=== PATIENT | female | born 1960 | race Caucasian/White ===

== ENCOUNTER 2018-01-08 10:31 | Emergency (ER) | payer OTHER ==
[~2018-01-08] VITALS: Ht 165.1 cm; Wt 112.0 kg
[~2018-01-08 10:31] MED LIST: AMOXIL 875 MG875 MG PO; BACTRIM DS 8001 TAB PO
[2018-01-08 10:36] VITALS: BP 121/79
--- NOTE | 2018-01-08 12:21 | ED SKIN/ALLERGY COMPLAINT ---
History of Present Illness General Chief Complaint: General Adult Stated Complaint: ?ALLERGIC REACTION, SWELLING OF FACE/TONGUE Source: patient Exam Limitations: no limitations Vital Signs & Intake/Output Vital Signs & Intake/Output Vital Signs Date Time Temp Pulse Resp B/P B/P Pulse O2 O2 Flow FiO2 Mean Ox Delivery Rate 01/08 1036 98.7 88 18 121/79 98 Room Air Allergies Coded Allergies: codeine (Intermediate, VOMITUS 01/08/18) prednisone (Intermediate, CONFUSION 01/08/18) Reconcile Medications Amoxicillin (Amoxil 875 MG Tablets) 875 MG TAB 1 TAB PO BID CELLULITIS Dexamethasone 1 MG TABLET 1 TAB PO BID allergic reaction Sulfamethoxazole/Trimethopri (Bactrim Ds 800 MG-160 MG) 1 TAB TAB 1 TAB PO BID CELLULITIS Triage Note: 57 YO FEMALE TO [facility] FOR EVAL OF ALLERIGIC REACTION TO ?PROTEIN SHAKE. NOTED WITH SWELLING AROUND EYES AND SOME SWLLING TO TOUNGE. NO RESP S/S. PT ABLE TO SPEAK FELL, CLEAR SENTANCES. REPORTS NOSE FEELS CLOGGED AND ITCHY ALL OVER. Triage Nurses Notes Reviewed? yes Onset: Gradual Duration: hour(s): Timing: single episode today Severity: moderate Location: generalized HPI: 57yo female presents to ED complaining of allergic reaction to protein shake she drank around 10AM today. Patient states she began feeling gradual increasing itchiness, rash to extremities, swelling around her eyes and tongue swelling. Patient has no history of allergic reactions in the past however does believe she may have a soy allergy. Patient has seen an chief telephone operator in the past. No history of anaphylaxis. NO use of MARIJA/ARBs. Patient reports mild dyspnea at this time. (Jazmin GABRIEL,Velma Rogers) Past History Travel History Traveled to [place] past 21 day No Medical History Any Pertinent Medical History? see below for history Neurological: NONE EENT: NONE Cardiovascular: hyperlipidemia Respiratory: NONE Gastrointestinal: NONE Hepatic: NONE Renal: NONE Musculoskeletal: NONE Psychiatric: anxiety, depression Endocrine: diabetes Blood Disorders: NONE Cancer(s): NONE FOURDRINIER TENDER/Reproductive: NONE Influenza Vaccine: 02/23/13 Surgical History Surgical History: non-contributory Psychosocial History What is your primary language Sinhala Tobacco Use: Never used Family History Hx Contributory? No (Velma Carvajal) Review of Systems Review of Systems Constitutional: Reports: no symptoms. EENTM: Reports: see HPI. Respiratory: Reports: see HPI. Cardiovascular: Reports: no symptoms. GI: Reports: no symptoms. Genitourinary: Reports: no symptoms. Musculoskeletal: Reports: no symptoms. Skin: Reports: see HPI. Neurological/Psychological: Reports: no symptoms. Hematologic/Endocrine: Reports: no symptoms. Immunologic/Allergic: Reports: see HPI. All Other Systems: Reviewed and Negative (Velma Carvajal) Physical Exam Physical Exam General Appearance: well developed/nourished, no apparent distress, alert, awake Head: atraumatic, normal appearance Eyes: Bilateral: other (chemosis). Ears, Nose, Throat: normal pharynx, hearing grossly normal, moderate tongue swelling Neck: normal inspection, supple, full range of motion Respiratory: normal breath sounds, no respiratory distress, lungs clear Cardiovascular: regular rate/rhythm Back: normal inspection, normal range of motion Extremities: normal inspection, normal range of motion Neurologic/Psych: awake, alert, oriented x 3 Skin: erythematous slightly raised maculopapular rash to bilateral upper extremities and chest (Velma Carvajal) Progress Differential Diagnosis: abscess/cellulitis, allergic reaction, anaphylaxis, angioedema, contact dermatitis, drug reaction, urticaria Plan of Care: Current Medications Sig/Navin Start time Last Medication Dose Stop Time Status Admin Diphenhydramine HCl 25 MG ONCE ONE 01/08 1230 UNVr (Benadryl) 01/08 1231 Patient reports an adverse reaction from taking prednisone in the past however she reports symptoms of confusion and agitation. It does not sound like an allergic reaction to prednisone. For this reason patient medicated with IV Decadron, Benadryl, Pepcid for her current allergy symptoms. One hour following medication administration the patient was reevaluated. Her rash has resolved however she still has mild tongue swelling. Dr. Pollack recommends 25 mg Benadryl in addition to her first dose. On third evaluation patient's tongue swelling has improved, she has no dyspnea, she feels ready to go home at this time. Patient instructed to follow-up with her chief telephone operator. She agrees with the plan of care. Dr. Pollack agrees with this plan. (Velma Carvajal) Departure Departure Disposition: HOME OR SELF CARE Condition: Stable Clinical Impression Primary Impression: Allergic reaction Qualifiers: Encounter type: initial encounter Qualified Code: T78.40XA - Allergy, unspecified, initial encounter Referrals: Krysten Pollard MD (PCP/Family) Additional Instructions: Take Benadryl 50MG EVERY 6 HOURS FOR THE NEXT TWO DAYS. If you have any persistent symptoms please continue Benadryl. Take full course of Decadron steroids. Follow-up with her primary care doctor. Return if they have any worsening symptoms or concerns. Please note that there might be incidental findings in your evaluation that are unrelated to the current emergency department visit. Please notify your primary care doctor about this emergency department visit in order to obtain and review all of the testing performed so that these incidental findings can be monitored as needed. If you had an x-ray performed, please understand that some fractures may not be seen on the initial set of x-rays. If your symptoms persist you might need a repeat set of x-rays to check for such a fracture. If you had a laceration evaluated, please understand that foreign bodies such as glass or wood may not be visible to the naked eye or on plain x-rays. If the wound becomes red, swollen, increasingly more painful or if there is any drainage from the wound, please have it reevaluated by a physician for the possibility of a retained foreign body. If you're unable to follow up as outlined in the discharge instructions please return to the emergency department. Thank you for choosing the [facility] Emergency Department for your care. It was a pleasure to serve you today. Departure Forms: Customer Survey General Discharge Information Prescriptions: Current Visit Scripts Dexamethasone 1 TAB PO BID #10 TAB (Jazmin GABRIEL,Velma Rogers) PA/STRATEGIC PARTNERSHIP SPECIALIST Co-Sign Statement Statement: ED Attending supervision documentation- [x] I saw and evaluated the patient. I have also reviewed all the pertinent lab results and diagnostic results. I agree with the findings and the plan of care as documented in the PA's/STRATEGIC PARTNERSHIP SPECIALIST's documentation. [] I have reviewed the ED Record and agree with the PA's/STRATEGIC PARTNERSHIP SPECIALIST's documentation. [] Additions or exceptions (if any) to the PAs/STRATEGIC PARTNERSHIP SPECIALIST's note and plan are summarized below: [] I evaluated the patient after initial treatment. No evidence of angioedema on my exam. (Nick Pollack DO
[2018-01-08] MEDS ORDERED: DEXAMETHASONE1 M1 PO (13:31)
== END 2018-01-08 14:03 ==
LOC: ERH 10:31
DX: T78.1XXA Other adverse food reactions, not elsewhere classified, initial encounter (principal)
CPT/HCPCS: 96374; 96375; 96376; J1100; J1200